=== PATIENT | female | born 2000 | race Caucasian/White ===

== ENCOUNTER 2019-12-31 08:54 | Outpatient (CLI) | payer OTHER, SELFPAY ==
--- NOTE | ~2019-12-31 | US_ITS ---
US breast RT limited DATE: 12/31/2019 09:20 INDICATION: Right breast lump TECHNIQUE: High-resolution ultrasound imaging targeted to the area of clinical complaint at 12:00 haley r the nipple COMPARISON: None FINDINGS: There is an 11.2 x 7.7 x 8.9 mm sonolucency with through transmission and posterior enhance ment at the area of clinical complaint of left breast lump at 12:00 near the nipple. Findings are con sistent with simple cyst. No suspicious mass or shadowing is evident. IMPRESSION: BI-RADS Category 2: Benign finding; 11 mm left breast cyst at 12:00 near nipple Recommendation: Routine mammographic screening beginning at age 35-40 Reviewed, dictated and finalized at [facility] Reviewed, dictated and finalized at [facility].
== END 2019-12-31 08:55 | disposition home or self-care (01) ==
PROVIDERS: PCP Nurse Practitioner Adult Health; Visit Provider Family Medicine
DX: N63.10 Unspecified lump in the right breast, unspecified quadrant (principal)
CPT/HCPCS: 76642

== ENCOUNTER 2022-03-09 16:01 | Emergency (ER) | payer OTHER, SELFPAY ==
[2022-03-09 16:13] VITALS: BP 127/77; PULSE 87; RESP 16; TEMP 36.6; O2SAT 100
--- NOTE | 2022-03-09 16:37 | ED.BACK ---
HPI - Back Pain/Injury General Chief Complaint: Back Pain/Injury Stated Complaint: Upper Middle Back Pain Time Seen by Provider: 03/09/22 16:24 Source: patient Mode of arrival: ambulatory Limitations: no limitations History of Present Illness HPI Narrative: Patient presents today complaining of mid back pain that started suddenly with 1 was 2 hours prior to arrival when she was climbing on her bed. Denies any injury or trauma. denies numbness or tingling in the extremities or genitalia. Denies chest pain, shortness of breath cough, abdominal pain. She currently rates her pain 6/10, which increases with twisting or movement. She has tried no [id number] treatment prior to arrival. Related Data Home Medications Medication Instructions Recorded Confirmed fluoxetine 20 mg capsule 20 mg PO DAILY 03/09/22 03/09/22 medroxyprogesterone 150 mg/mL See Rx Instructions .Route .COMPLEX 03/09/22 03/09/22 intramuscular suspension Allergies Allergy/AdvReac Type Severity Reaction Status Date / Time amoxicillin Allergy Mild HIVES Verified 03/09/22 16:18 codeine Allergy Unknown Other Verified 03/09/22 16:18 SHELL FISH Allergy Unknown Other Uncoded 03/09/22 16:18 Review of Systems Review of Systems: CONSTITUTIONAL: Denies body aches, fever, chills, or sweats. EYES: Denies visual changes, redness, or discharge. ENT: Denies rhinorrhea, congestion, sore throat, or otalgia. CARDIOVASCULAR: Denies chest pain, palpitations, or edema. RESPIRATORY: Denies cough or dyspnea. GASTROINTESTINAL: Denies abdominal pain, nausea, vomiting, or diarrhea. GENITOURINARY: Denies dysuria or hematuria. SKIN: Denies rash, itching, or wounds. MUSCULOSKELETAL: Denies joint pain, or myalgia.+ Midback pain NEUROLOGIC: Denies headache, numbness, tingling, or weakness. PSYCH: Denies depression or anxiety. PMFSH Comments At time of signature, I have reviewed and agree with nursing past medical, surgical, social and family history unless otherwise noted. Please see nursing chart for further information. There is no relevant family history pertinent to the presenting complaint Exam Narrative: GENERAL: Well-appearing, well-nourished, and in mild pain distress. HEAD: Normocephalic, atraumatic. EYES: EOMI. No redness or drainage. Conjunctivae normal. ENT: Mucous membranes pink and moist. NECK: Normal AROM. CHEST: No respiratory distress. MUSCULOSKELETAL: No bony tenderness of the spine. Patient localizes pain to the area of the bra line, but this area is not tender to palpation pain increases with movement. Patient has full range of motion of the arms and neck without increased pain in the back. Distal sensation intact. Saddle sensation intact. Capillary refill normal. Pedal and radial pulses normal. Hand property custodian equal and strong. Foot push and pulls equal and strong. EXTREMITIES: Normal range of motion. No edema. SKIN: Warm, dry, no rash. Capillary refill normal. Normal skin turgor. NEURO: No focal deficits. Alert and oriented x3. Gait steady. PSYCH: Normal affect. No signs of depression or anxiety. Course Course Level of Care: Express Care Visit Vital Signs Vital signs: Vital Signs Temperature 97.9 F 03/09/22 16:13 Pulse Rate 87 03/09/22 16:13 Respiratory Rate 16 03/09/22 16:13 Blood Pressure 127/77 03/09/22 16:13 Pulse Oximetry 100 03/09/22 16:13 Oxygen Delivery Room Air 03/09/22 16:13 Temperature 97.9 F 03/09/22 16:13 Pulse Rate 87 03/09/22 16:13 Respiratory Rate 16 03/09/22 16:13 Blood Pressure 127/77 03/09/22 16:13 Pulse Oximetry 100 03/09/22 16:13 Oxygen Delivery Room Air 03/09/22 16:13 Reviewed. Pt has been instructed to follow up with her PCP regarding her elevated blood pressure today. MDM - Back Pain/Injury Differential Diagnosis Differential diagnosis: Likely thoracic back pain and other ( Back strain) Discharge Plan Discharge Clinical Impression: Strain of m
== END 2022-03-09 16:44 | disposition home or self-care (01) ==
PROVIDERS: Emergency Provider Nurse Practitioner; PCP Nurse Practitioner Family
DX: S29.012A Strain of muscle and tendon of back wall of thorax, initial encounter (principal); X58.XXXA Exposure to other specified factors, initial encounter
CPT/HCPCS: 99213; G0463

== ENCOUNTER 2022-11-20 17:53 | Emergency (ER) | payer OTHER, SELFPAY ==
[2022-11-20 17:55] VITALS: BP 130/82; PULSE 78; RESP 20; TEMP 36.2; O2SAT 100
[2022-11-20 18:39] LABS: Basophils Absolute Auto 0.1 K/mm3 (0.0-0.1); Basophils Percent Auto 0.8 % (0.2-1.2); Eosinophils Absolute Auto 0.2 K/mm3 (0-0.3); Eosinophils Percent Auto 1.9 % (0-4.4); Hematocrit 42.6 % (37.0-47.0); Hemoglobin 14.1 g/dL (12.0-15.0); Immature Granulocyte Absolute 0.02 K/mm3 (0.00-0.031); Immature Granulocyte Percent A 0.2 % (0-0.5); Lymphocytes Absolute Auto 2.28 K/mm3 (0.9-3.2); Lymphocytes Percent Auto 25.4 % (18.3-44.2); Mean Corpuscular HGB Conc 33.1 g/dl (32-36); Mean Corpuscular Hemoglobin 30.4 pg (26-34); Mean Corpuscular Volume 91.8 fl (80-100); Mean Platelet Volume 9.3 fl (7.4-10.4); Monocytes Absolute Auto 0.8 K/mm3 (0.1-0.6); Monocytes Percent Auto 8.3 % (2.6-8.5); Neutrophils Absolute Auto 5.7 K/mm3 (1.3-6.7); Neutrophils Percent Auto 63.4 % (45.5-73.1); Platelet Count Result 325 k/mm3 (150-375); Red Blood Count 4.64 M/mm3 (4.2-5.4); Red Cell Distribution Width 11.9 % (11.5-14.5)
[2022-11-20 18:47] LABS: Alanine Aminotransferase 23 U/L (6-35); Albumin Level 4.7 g/dL (3.5-5.1); Alkaline Phosphatase 47 U/L (38-126); Anion Gap 6 mmol/L (8-16); Aspartate Amino Transferase 33 U/L (14-36); Bilirubin,Total 0.6 mg/dL (0.2-1.3); Blood Urea Nitrogen 13 mg/dL (7-17); Calcium 9.4 mg/dL (8.4-10.2); Carbon Dioxide 27 mmol/L (22-30); Chloride 101 mmol/L (98-107); Estimated Glomerular Filt Rate > 60; Glucose 91 mg/dL (65-110); Lipase 58 U/L (23-300); Potassium 4.1 mmol/L (3.4-5.0); Sodium 134 mmol/L (137-145)
[2022-11-20 21:55] VITALS: BP 136/85; PULSE 69; RESP 18; TEMP 36.5; O2SAT 100
[2022-11-20 22:45] VITALS: BP 126/79; PULSE 91; RESP 18; O2SAT 100
--- NOTE | 2022-11-20 23:41 | ED.GENADULT ---
HPI - General Adult General Chief complaint: Abdominal Pain Stated complaint: abd pain Time Seen by Provider: 11/20/22 22:42 History of Present Illness HPI narrative: this is a 22-year-old female presenting ED with a chief complaint of abdominal pain. Five days ago she had a cramping sensation in her left lower quadrant that resolved on its own. Since then every time she moves she feels a stabbing pain in that area, nonradiating, 5 out 10 intensity and it caused by movement. She has never experienced this before. She has no other symptoms such as fever chills nausea vomiting diarrhea dysuria vaginal discharge irritation or trauma. Patient notes that she does work out at [employer] 3 to 4 times a week. Last menstrual period was 2 and half weeks ago her periods are regular. Related Data Home Medications Medication Instructions Recorded Confirmed fluoxetine 20 mg capsule 20 mg PO DAILY 03/09/22 03/09/22 medroxyprogesterone 150 mg/mL See Rx Instructions .Route .COMPLEX 03/09/22 03/09/22 intramuscular suspension Allergies Allergy/AdvReac Type Severity Reaction Status Date / Time amoxicillin Allergy Mild HIVES Verified 11/20/22 22:44 codeine Allergy Unknown Other Verified 11/20/22 22:44 SHELL FISH Allergy Unknown Other Uncoded 03/09/22 16:18 Exam Narrative: APPEARANCE: No apparent distress. Head: atraumatic. EYES: EOMI, NOSE: Atraumatic NECK: Trachea midline RESPIRATORY: No increased rate of breathing , clear to auscultation CARDIOVASCULAR: RRR, ABDOMINAL: Abdominal exam is soft nontender no guarding or rebound, no CVA tenderness, pain is reproducible with leg lifts and sit-ups. MUSCULOSKELETAl: No obvious deformities NEURO: Alert. Moving 4/4 extremities SKIN:: Warm, dry. Normal color PSYCHIATRIC: Normal affect Course Vital Signs Vital signs: Vital Signs Temperature 97.1 F L 11/20/22 17:55 Pulse Rate 78 11/20/22 17:55 Respiratory Rate 20 11/20/22 17:55 Blood Pressure 130/82 11/20/22 17:55 Pulse Oximetry 100 11/20/22 17:55 Oxygen Delivery Room Air 11/20/22 17:55 Temperature 97.7 F 11/20/22 21:55 Pulse Rate 91 11/20/22 22:45 Respiratory Rate 18 11/20/22 22:45 Blood Pressure 126/79 11/20/22 22:45 Pulse Oximetry 100 11/20/22 22:45 Oxygen Delivery Room Air 11/20/22 17:55 Medical Decision Making [facility] Narrative Medical decision making narrative: -Presentation: 22-year-old female presenting with abdominal pain associated with movement. Laboratory studies unremarkable. Physical exam is unremarkable. VSS. Patient is well-appearing. Pain is reproducible with activation of her core. Suspect musculoskeletal pain. Discussed the risks and benefits of CT abdomen pelvis and at this time patient is comfortable holding off on a CT scan. Patient will be discharged with return precautions and symptomatic treatment. 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 UA had 6-10 white blood cells and +1 bacteria but no nitrates or leuk esterase. Patient does not have urinary symptoms. Await culture results. -Test considered but not ordered: CT abdomen pelvis -Interventions: Motrin, Tylenol, Robaxin -Shared decision making / Disposition: patient will be discharged on a course of NSAIDs with return precautions. -RX Motrin Tylenol Robaxin Vital Signs Vital Signs: Vital Signs Temperature 97.1 F L 11/20/22 17:55 Pulse Rate 78 11/20/22 17:55 Respiratory Rate 20 11/20/22 17:55 Blood Pressure 130/82 11/20/22 17:55 Pulse Oximetry 100 11/20/22 17:55 Oxygen Delivery Room Air 11/20/22 17:55 Temperature 97.7 F 11/20/22 21:55 Pulse Rate 91 11/20/22 22:
[2022-11-20] MEDS: methocarbamoL 750 MG TABLET 1500 MG PO (23:45)
[2022-11-20] MEDS: ACETAMINOPHEN 500 MG TABLET 1000 MG PO (23:46)
[2022-11-20] MEDS: IBUPROFEN 400 MG TABLET 800 MG PO (23:48)
[2022-11-21 00:17] LABS: Appearance Urine Cloudy (Clear); Bacteria Urine 1+ /hpf; Bilirubin Urine Negative (Negative); Color Urine Yellow (Yellow); Glucose Urine UA Negative (Negative); Ketones Urine 2+ mg/dL (Negative); Leukocyte Esterase Ur Negative LEU/UL (Negative); Nitrate Urine Negative (Negative); Non Pathogenic Casts 0-2; Protein Urine 1+ mg/dL (Negative); RBC Urine 0-2 /hpf (0-2); Specific Grav Ur 1.028 (1.001-1.035); Squamous Epithelial Cell Urine Moderate /hpf (Few); Urobilinogen Urine 0.2 mg/dL (<2.0); pH Urine 5.5 (5.0-9.0)
[2022-11-21 00:20] LABS: Add Urine Microscopic? YES
== END 2022-11-21 01:00 | disposition home or self-care (01) ==
PROVIDERS: Emergency Medicine; Emergency Provider Emergency Medicine; PCP Nurse Practitioner Family
DX: S39.011A Strain of muscle, fascia and tendon of abdomen, initial encounter (principal); X58.XXXA Exposure to other specified factors, initial encounter
CPT/HCPCS: 36415; 80053; 81001; 81025; 83690; 85025; 87086; 99283; A9270

== ENCOUNTER 2024-12-21 17:19 | Emergency (ER) | payer BC, SELFPAY ==
[2024-12-21 17:34] VITALS: BP 137/85; PULSE 74; RESP 14; TEMP 36.6; O2SAT 100
--- NOTE | 2024-12-21 17:39 | ED.URI ---
HPI - URI/Sore Throat General Chief Complaint: Upper Respiratory Infection Stated Complaint: Sore throat Time Seen by Provider: 12/21/24 17:39 Source: patient Mode of arrival: ambulatory Limitations: no limitations History of Present Illness HPI Narrative: 24-year-old female presents with complaint of nasal congestion, headache, sore throat, nausea for 2-3 days. Afebrile. Patient reports history of strep. Took ibuprofen and helped with throat pain. All systems reviewed and negative except as noted above. Related Data Home Medications ?Medication ?Instructions ?Recorded ?Confirmed ?Last Taken ?Type fluoxetine 20 mg capsule 20 mg PO DAILY 03/09/22 12/21/24 Unknown History medroxyprogesterone 150 mg/mL See Rx Instructions .Route .COMPLEX 03/09/22 12/21/24 Unknown History intramuscular suspension Allergies Allergy/AdvReac Type Severity Reaction Status Date / Time amoxicillin Allergy Mild HIVES Verified 12/21/24 17:23 codeine Allergy Unknown Other Verified 12/21/24 17:23 SHELL FISH Allergy Unknown Other Uncoded 03/09/22 16:18 PMFSH Comments At time of signature, agree with nursing past medical, surgical, social and family history. There is no relevant family history pertinent to the presenting complaint. Exam Narrative: GENERAL: This is a well-nourished, well-developed patient, in no apparent distress. HEAD: normocephalic, atraumatic. EYES: PERRL. Sclera clear/white. Vision is grossly intact. EARS: External ears normal, auditory canals clear and without drainage, TMs normal without perforation. Hearing grossly intact. NOSE: External nose normal with no obvious nasal discharge, nares without redness, no rhinorrhea. THROAT: Mucous membranes moist, posterior pharynx clear. NECK: Neck supple, non-tender without lymphadenopathy, masses or thyromegaly. CARDIOVASCULAR: Regular rate and rhythm without murmurs, gallops, or rubs. RESPIRATORY: Clear to auscultation. Breath sounds equal bilaterally. No wheezes, rales, or rhonchi. SKIN: warm, Dry, intact with no suspicious lesions or rash, good texture and turgor. NEURO: awake, alert, and oriented to person, place and time. There were no obvious focal neurologic abnormalities. EXTREMITIES: No joint tenderness, effusion, or edema noted. Course Course Level of Care: Express Care Visit Vital Signs Vital signs: Vital Signs Temperature 36.6 C 12/21/24 17:34 Pulse Rate 74 12/21/24 17:34 Respiratory Rate 14 12/21/24 17:34 Blood Pressure 137/85 12/21/24 17:34 Pulse Oximetry 100 12/21/24 17:34 Oxygen Delivery Room Air 12/21/24 17:34 Temperature 36.6 C 12/21/24 17:34 Pulse Rate 74 12/21/24 17:34 Respiratory Rate 14 12/21/24 17:34 Blood Pressure 137/85 12/21/24 17:34 Pulse Oximetry 100 12/21/24 17:34 Oxygen Delivery Room Air 12/21/24 17:34 Reviewed MDM - URI/Sore Throat MDM Narrative Medical decision making narrative: negative COVID, influenza and strep. Normal exam. Strep culture ordered. Will wait for culture results prior to treating with antibiotics. Recommend over the counter medications to treat symptoms. Differential Diagnosis Differential diagnosis: Likely upper respiratory infection, sinusitis, viral infection, influenza and pharyngitis Lab Data Labs: Lab Results 12/21/24 Range/Units 17:47 POC Influenza A Ag Negative (Negative) POC Influenza B Ag Negative (Negative) POC SARS CoV-2 Ag Negative (Negative) POC Grp A Strep Screen Negative (Negative) Discharge Plan Discharge Clinical Impression: Acute viral pharyngitis Patient Disposition: Home Condition: Stable Instructions: Pharyngitis (ED) Additional Instructions: your COVID, influenza and strep test was negative today. A strep culture was ordered and results will take 24-48 hours. If your strep culture is positive we will call you at that time and prescribed an antibiotic. Take ibuprofen or Tylenol every 6-8 hours as needed for pain. Drink at least 64 oz water a day. See your primary care physician if symptoms are not improving. Patient Language: Chinese Prescriptions: No Action fluoxetine 20 mg capsule 20 mg PO DAILY medroxyprogesterone 150 mg/mL suspension See Rx Instructions .ROUTE .COMPLEX Rx Instructions: 150 mg intramuscularly once every 3 months Follow-up/Referrals: Naz,[place] APRN [Primary Care Provider, Family Practice] Stand Alone Forms: Work/School Release IP Time of Disposition: 17:45
[2024-12-21 17:48] LABS: EDCOVIDSCREEN Negative (Negative); EDINFLUASCREEN Negative (Negative); EDINFLUBSCREEN Negative (Negative); EDSTREPNEGPOS1 Negative (Negative)
--- OUTSIDE RECORDS SUMMARY | 2024-12-21 19:09 | XMS_ITS | Clinical Summary ---
Author Organization [facility] Address [address] [place] [address] Care Team Providers Care Bucket Hooker Name Role Phone Sera Magallanes HOSPICE SPIRITUAL CARE COORDINATOR-HEMATOLOGY SPECIALIST Primary Care Provider + Source Comments [facility],non-owned Affiliates and Associated Physician Practices is amultiple site organization consisting of ambulatory clinics and hospital sitesin [place], [place], [place] and [place]. This disclosure is being madepursuant to the Care Everywhere program and may not contain all information available regarding this patient. Last updated 17.[facility] Allergies Active Allergy Reactions Criticality Noted Date Comments Codeine Urticaria High 02/06/2011 Shellfish Urticaria 02/06/2011 Medications * Be aware that medications may not be up to date on this document. Always verify current medications with the patient. 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 0.5 x 0.7 cm brown papule at left upper back. Notched border at 10, 12, 2 and 6 o'clock upper and lower right medial poles. Present since . No family h/o MM. Mom states shape is changing x 1 yr. Family History Medical History Relation Name Comments Asthma Brother Asthma Maternal Aunt kidney Cancer Maternal Aunt kidney Diabetes Maternal Grandfather Cancer Maternal Grandmother kidney Cancer Maternal Uncle Skin problem Mother mole Cancer Paternal Grandfather bone Clotting Disorder Paternal Grandmother Relation Name Status Comments Brother Maternal Aunt kidney Alive Maternal Grandfather Maternal Grandmother kidney Alive Maternal Uncle Mother mole Alive Paternal Grandfather bone Paternal Grandmother Social History Tobacco Use Types Packs/Day Years Used Date Smoking Tobacco: Never Smokeless Tobacco: Never Tobacco Cessation:Counseling Given: Yes PHQ-2 Answer Date Recorded PHQ2 TOTAL SCORE 0 02/24/2022 Comments No Sex and Gender Information Value Date Recorded Sex Assigned at Not on file Legal Sex Female 12:19 PM SHEET METAL ENGINEER Gender Identity Not on file Sexual Orientation Not on file Last Filed Vital Signs Vital Sign Reading Time Taken Comments Blood Pressure 120/86 06/10/2020 6:16 PM SHEET METAL ENGINEER Pulse 84 06/10/2020 6:16 PM SHEET METAL ENGINEER Temperature 36.6 C (97.9 F) 06/10/2020 6:16 PM SHEET METAL ENGINEER Respiratory Rate 14 06/10/2020 6:16 PM SHEET METAL ENGINEER Oxygen Saturation 100% 06/10/2020 6:16 PM SHEET METAL ENGINEER Inhaled Oxygen Concentration - - Weight 61.7 kg (136 lb) 06/10/2020 6:16 PM SHEET METAL ENGINEER Height 160 cm (5' 3) 06/10/2020 6:16 PM SHEET METAL ENGINEER Body Mass Index 24.09 06/10/2020 6:16 PM SHEET METAL ENGINEER Plan of Treatment Health Maintenance Due Date Last Done Comments HIV SCREENING 2014 HPV VACCINE (1 - 3-dose series) 2014 CHLAMYDIA/GONORRHEA SCREENING 2015 HEPATITIS C SCREENING 02/07/2017 DTAP/TDAP/TD VACCINES (1 - Tdap) 2018 HEPATITIS B VACCINE (1 of 3 - 19+ 3-dose series) 2018 PAP SMEAR 02/13/2020 DEPRESSION SCREENING 04/08/2024 COVID-19 VACCINE ( - 2024- season) 2024 05/13/2021, 08/05/2020 INFLUENZA VACCINE (#1) 2024 9, 02/20/2017, 02/26/2013, Additional history exists ZOSTER VACCINE (1 of 2) 2049 HIB VACCINE Aged Out No longer eligi ble based on patient's age to complete this topic MENINGOCOCCAL (Group B) VACCINE SHARED DECISION-MAKING Aged Out No longer eligible based on patient's age to complete this topic MENINGOCOCCAL GROUPS A/C/Y/W VACCINE Aged Out No longer eligible based on patient's age to complete this topic PNEUMOCOCCAL VACCINE Aged Out No long er eligible based on patient's age to complete this topic Insurance Care Teams Bucket Hooker Relationship Specialty Start Date End Date Sera Magallanes APRN-MINERVA [address] [phone] PCP - General Nurse Practitioner 04/23/20
== END 2024-12-21 17:50 | disposition home or self-care (01) ==
PROVIDERS: Emergency Provider Nurse Practitioner Family; PCP Nurse Practitioner Adult Health
DX: J02.0 Streptococcal pharyngitis (principal); Z20.822 Contact with and (suspected) exposure to COVID-19; F41.9 Anxiety disorder, unspecified; F32.A Depression, unspecified; Z86.16 Personal history of COVID-19
CPT/HCPCS: 87081; 87426; 87804; 87880; 99213; G0463